=== PATIENT | male | born 1945 | race Caucasian/White ===

== ENCOUNTER 2017-10-13 08:18 | Outpatient (RCR) | payer MEDICARE ==
[2014-02-21 14:58] VITALS: Wt 96.1 kg
[2017-10-06 08:03] VITALS: BP 148/73
[2017-10-06 08:20] LABS: PLATELET COUNT, AUTOMATED 262 K/uL (150-450)
[~2017-10-13 08:18] MED LIST: ACE3 PO; ACLI400A2 IH; ADV100/50 INH; ADV250/50 INH; ALB0.5 INH; ALBU8.5H IH; AML5 PO; AMLO-96 PO; ASPI-1471 PO; ASPI-715 PO; AZIT-101 PO; BP MED; COM14R IH; DOCU50CA PO; FERR325T24 PO; FISH OIL1 CAP PO; FLUT1DIS28 IH; GUAI600T57 PO; GUALA600 PO; LISI-368 PO; LOSA-54 PO; LOSA100T62 PO; MULT-772 PO; OMEG300C PO; OMEG500C7 PO; OMEP-218 PO; PAN40 PO; PANT40TA65 PO; PRED-314 PO; PROAIRPT IH; SUCR1ORA17 PO; TIO18R IH; VITA150T2 PO
[2017-10-13 08:28] VITALS: BP 133/61
--- NOTE | 2017-10-14 16:41 | ONCOLOGY FOLLOW UP NOTE ---
EVENT DATE: October 13, 2017 CHIEF COMPLAINT/REASON FOR VISIT Mr. 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 HISTORY OF PRESENT ILLNESS Mr. Light returns. 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 He requires O2 chronically at altitude, but is able to remove it at lower altitudes such as [place]. He wears it at night and frequently during the day. Last April he complained of some black mucus which he was concerned to be blood. He has had an EGD with Dr. Love in the past and I recommended that he follow up with him at that time as well as consideration of esophageal dilatation. He did not keep that followup, and I would like him to follow up with Dr. Love soon as I am concerned he has an ulcer or other lesion causing the iron deficiency. This is regulating his secondary erythrocytosis. His labs are ideal, but I am concerned we are missing something. This may simply be hiatal hernia with some oozing in the stomach, but I would like to rule out a more serious diagnosis. Otherwise he is doing quite well. PAST MEDICAL HISTORY 1. Secondary erythrocytosis. 2. Erosive esophagitis. 3. COPD. 4. History of smoking. 5. History of colectomy. 6. Iron deficiency anemia due to bleeding, resolved. SOCIAL HISTORY The patient is and has presented with his . Former smoker, quit twenty-five years ago, but heavy pack year history. REVIEW OF SYSTEMS CONSTITUTIONAL: No fevers, chills or weight change. HEENT: No headache or vision changes. CARDIOVASCULAR: No chest pain, dyspnea on exertion or edema. RESPIRATORY: No shortness of breath, wheeze or cough. Chronic O2 use. GASTROINTESTINAL: Positive mucus that appears black at times, approximately every two months. May be some dried blood, small amount. GENITOURINARY: No dysuria or hematuria. MUSCULOSKELETAL: No weakness or joint pain. PSYCHIATRIC: No anxiety or depression. ENDOCRINE: No heat or cold intolerance. SKIN: No concerning rash or lesions. The remainder of the 14-point review of systems otherwise negative. PHYSICAL EXAMINATION VITAL SIGNS: Blood pressure 133/61, pulse 80, respiratory rate 16, temperature 97 Fahrenheit, oxygen saturation 92% on room air. Weight 96.1 kg. Pain 0/10, fatigue 0/10. GENERAL: In stable condition, resting comfortably in the chair. HEENT: Normocephalic, atraumatic. LYMPHATIC: No appreciable cervical, supraclavicular or axillary adenopathy. ABDOMEN: Soft, nontender. SKIN: No significant facial plethora today. The remainder of the physical exam is otherwise unremarkable. IMPRESSION AND PLAN Mr. Light is a pleasant 71-year-old gentleman with the followin. Iron deficiency with a history of bleeding polyps. 2. 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 His labs are ideal right now and balanced. 3. History of colon polyps as well as currently some scant hemoptysis. At this point, as it is continuing, he must follow up with Dr. Love and get an EGD as well as consideration of colonoscopy if it is due. He also thinks he may need an esophageal dilatation, and I defer to Dr. Love. I will continue to see him every six months. I answered all of his questions today. Billing: Return visit level 3. Total time 20 minutes, counseling time 15. MTDD
[2017-10-23] MEDS ORDERED: UMEC62.5 INH (08:44)
[2017-10-23] MEDS ORDERED: ADV230RPT INH (08:44)
[2017-10-23] MEDS ORDERED: GUAI1200 PO (08:44)
== END 2017-10-31 16:12 | disposition home or self-care (01) ==
LOC: ONC 08:18
PROVIDERS: ATTEND Internal Medicine
DX: D50.9 Iron deficiency anemia, unspecified (principal)
CPT/HCPCS: 36415; 82728; 83540; 83550; 85025; G0463; 82040; 82247; 82310; 82374; 82435; 82565; 82947; 84075; 84132; 84155; 84295; 84450; 84460; 84520; 99212

== ENCOUNTER → 2017-11-10 | Outpatient (CLI) | payer MEDICARE ==
[2014-02-21 14:58] VITALS: BMI 28.6
[~2017-11-10] MED LIST changes: +ADV230RPT INH; +GOLYTE PO; +GUAI1200 PO; +UMEC62.5 INH
[2017-11-10 10:31] LABS: PLATELET COUNT, AUTOMATED 284 K/uL (150-450)
--- NOTE | 2017-11-10 10:57 | EKG ---
[place] [facility] [place] JET FREEMAN : [id number] MR: [id number] V: [id number] EXAM DATE: ORDERING PHYSICIAN: JALEN VELÁSQUEZ TECHNOLOGIST: LYNN Test Reason : PRE OP CLEARANCE Blood Pressure : / mmHG Vent. Rate : 072 BPM Atrial Rate : 072 BPM P-R Int : 162 ms QRS Dur : 094 ms QT Int : 402 ms P-R-T Axes : 075 059 045 degrees QTc Int : 440 ms Sinus rhythm No acute appearing findings No previous ECGs available Confirmed by KEEGAN TSANG ([id number]) on 11/10/2017 12:50:39 PM Referred By: DIDIER Confirmed By:KEEGAN TSANG
--- NOTE | 2017-11-10 11:37 | RADIOLOGY IMAGING REPORT ---
FACILITY: [facility] PATIENT NAME: Garo Light : 1945 MR: [id number] V: [id number] EXAM DATE: ORDERING PHYSICIAN: JALEN VELÁSQUEZ TECHNOLOGIST: Location: [facility] Patient: Garo Light : 1945 Visit/Account:[id number] Date of Sevice: 11/10/2017 Exam type: CHEST PA AND LAT History: COPD, hemoptysis, preop clearance Comparison: November 15, 2011. Findings: There is increasing linear stranding in the mid to lower lung walter bilaterally which may represent progressive scarring and or atelectasis. There is hyperinflation lung walter. No evidence of pleura l effusions. The cardiac silhouette is normal in size. IMPRESSION: 1. Increasing linear stranding in the mid to lower lung walter bilaterally which may represent progr essive scarring and/or atelectasis Hyperinflation lung walter consistent with COPD Report Dictated By: Claribel Rodriguez MD at 11/10/2017 11:17 AM Report E-Signed By: Claribel Rodriguez MD at 11/10/2017 11:34 AM WSN:[email or web address]
== END ==
LOC: LAB 09:58
PROVIDERS: ATTEND Surgery
DX: Z01.818 Encounter for other preprocedural examination (principal); R91.8 Other nonspecific abnormal finding of lung field; R04.2 Hemoptysis
CPT/HCPCS: 36415; 71046; 82565; 85025

== ENCOUNTER 2017-11-20 03:31 | Day surgery (SDC) | payer MEDICARE ==
[2014-02-21 14:58] VITALS: Ht 180.3 cm; Wt 89.4 kg
[~2017-11-20] VITALS: Ht 180.3 cm; Wt 89.4 kg
[2017-11-20 13:08] VITALS: BP 129/60
[2017-11-20] MEDS ORDERED: LIDOCAINE/SOD BICARB 8.4% SYR ID ONE (13:30)
[2017-11-20] MEDS ORDERED: NORMOSOL R SOLN(*) 1000 ML BAG 1,000 ML IV PRN (13:30)
[2017-11-20] MEDS ORDERED: MIDAZOLAM 2 MG/2 ML VIAL IVP PRN (13:30)
[2017-11-20] MEDS ORDERED: ONDANSETRON 4 MG/2 ML VIAL ONE (14:51)
[2017-11-20] MEDS ORDERED: DEXAMETHASONE SOD 4 MG/ML VIAL ONE (14:51)
[2017-11-20] MEDS ORDERED: LIDOCAINE MPF 1% 5 ML VIAL ONE ×2 (14:51→15:43)
[2017-11-20] MEDS ORDERED: PROPOFOL EMUL(*) 10MG/ML 20 ML 20 ML ONE (14:51)
[2017-11-20] MEDS ORDERED: ROCURONIUM BROM 10 MG/ML 10 ML ONE (14:51)
[2017-11-20] MEDS ORDERED: fentaNYL CITR 250 MCG/5 ML AMP ONE (14:51)
[2017-11-20] MEDS ORDERED: KETAMINE HCL 200 MG/20 ML MDV ONE (14:55)
[2017-11-20] MEDS ORDERED: PROPOFOL EMUL(*) 10MG/ML 20 ML 40 ML ONE (15:43)
[2017-11-20] MEDS ORDERED: MINERAL OIL LIGHT 10 ML VIAL ONE (15:46)
[2017-11-20] MEDS ORDERED: PROPOFOL EMUL(*) 10MG/ML 20 ML 60 ML ONE (16:04)
[2017-11-20] MEDS ORDERED: SUGAMMADEX SOD 500 MG/5 ML SDV ONE (16:05)
[2017-11-20] MEDS ORDERED: RANI-320 PO (17:10)
--- NOTE | 2017-11-20 17:14 | Short(Outpt) Discharge Summary ---
Discharge Summary Reason for Hosp/Final Diag: (1) Iron deficiency anemia Status: Acute Hospital Course & Plan: Bronchoscopy with BAL, EGD with biopsies, and colonoscopy with polypectomy x6 completed without problems. (2) Hemoptysis Status: Chronic (3) History of colon polyps Status: Chronic (4) Dysphagia Status: Chronic (5) Esophagitis, erosive Status: Acute (6) History of smoking Status: Chronic (7) History of colectomy Onset Date: ~ 2007 Status: Acute Departure Discharge to: Home, Self Care Discharge Instructions Home Meds Active Scripts Ranitidine Hcl (RANITIDINE HCL) 300 Mg Tablet, 1 TAB PO QHS, #60 TAB 6 Refills Prov:JALEN VELÁSQUEZ MD 11/20/17 Peg/Electrolytes (GOLYTELY SOLUTION) 4,000 Ml Soln, 1 GAL PO ONCE, #1 GAL 0 Refills Prov:JALEN VELÁSQUEZ MD 11/10/17 Reported Medications Umeclidinium [place] (Incruse Ellipta) 62.5 Mcg Blst.w.dev, 1 BLIST PACK INH QDAY 10/23/17 Guaifenesin (MUCINEX) 1,200 Mg Tbmp.12hr, 1 TAB PO BID 10/23/17 Fluticasone/Salmeterol (ADVAIR HFA 230-21 MCG INHALER) 1 Inh Inh, 1 PUFF INH BID , INH 10/23/17 Pantoprazole Sodium (PANTOPRAZOLE SODIUM) 40 Mg Tablet.dr, 1 TAB PO QDAY, TAB.SR 05/11/15 Vitamin B Complex & Vit C No.4 (SUPER B COMPLEX) 150 Mg Tablet, 1 TAB PO DAILY 03/18/14 Multivitamin W-Minerals/Lutein (CENTRUM SILVER ULTRA MEN'S TAB) 1 Each Tablet, 1 TAB PO DAILY 03/18/14 [place]-3 Fatty Acids (FISH OIL) 300 Mg Capsule, 1 CAP PO DAILY, CAPSULE 03/18/14 Aspirin (ASPIR 81) 81 Mg Tablet., 1 TAB PO QDAY, TAB 03/08/14 Albuterol Sulfate 90 Mcg/Act (PROAIR HFA 90 MCG/ACT) 8.5 Gm Hfa.aer.ad, 1-2 PUFF IH BID 03/08/14 Amlodipine Besylate (AMLODIPINE BESYLATE) 5 Mg Tablet, 1 TAB PO BIDR, TAB TAKE ONE TABLET BY MOUTH EVERY DAY 03/08/14 Losartan/Hydrochlorothiazide (LOSARTAN-HCTZ 100-25 MG TAB) 1 Each Tablet, 1 TAB PO QDAY 03/08/14 Follow up Referrals: General Surgery - 12/01/17 @ Surgery, General with Jalen Velásquez Md You have a follow up appointment scheduled with Dr. Velásquez on 12/01/17, at 4:30pm. Diet: Regular Activity: As Tolerated Special Instructions: I didn't find anything abnormal in your airways. You have inflammed and eroded esophagus just above your stomach. I am going to add ranitidine to your anti stomach acid regimen and you should take one pill of ranitidine about 1 hour before going to bed every night. Avoid eating or drinking within 3 hours of laying down to go to bed. I removed 6 polyps from your colon and they were sent to pathology. I will discuss all of these results when I see you back in my office on 12/01/17, at 4:30pm. Problem Qualifiers (1) Iron deficiency anemia: Iron deficiency anemia type: unspecified iron deficiency Qualified Codes: D50.9 - Iron deficiency anemia, unspecified JALEN VELÁSQUEZ MD November 20, 2017 17:14
--- NOTE | 2017-11-20 17:26 | Post Operative Progress Note ---
Post Operative Progress Note Date: November 20, 2017 Time: 17:15 Surgeon: Ivan Dictation number: [id number] Anesthesia: GETA by Dr. Latham Pre-Op Diagnosis: Hemoptysis GERD Dysphagia H/O colon polyps Post-Op Diagnosis: WOO Erosive esophagitis Findings: Erosive esophagitis 6 colon polyps Procedure(s): Bronchoscopy with BAL EGD with biopsies Colonoscopy with snare polypectomy x6 Specimen Removed:(May be N/A): 1) Bronchoalveolar lavage sent for cytology 2) GE junction 3) Ascending colon polyp #1 4) Ascending colon polyp #2 5) Ascending colon polyp #3 6) Descending colon polyp 7) Rectal polyp #1 8) Rectal polyp #2 Complications: None Fluids: See anesthesia record Estimated Blood Loss: Minimal Date OP Note Dictated: November 20, 2017 Time OP Note Dictated: 17:18 JALEN VELÁSQUEZ MD November 20, 2017 17:25
[2017-11-20 17:45] VITALS: BP 112/57
[2017-11-20 17:52] VITALS: BP 111/57
--- NOTE | 2017-11-20 20:28 | OPERATIVE REPORT 1 ---
EVENT DATE: November 20, 2017 ENDOSCOPIST: Isaac Love MD ANESTHESIOLOGIST: Josh Subramanian MD ANESTHESIA: General endotracheal anesthesia. PREOPERATIVE DIAGNOSES 1. Hemoptysis. 2. Gastroesophageal reflux disease. 3. Dysphagia. 4. History of colon polyps. POSTOPERATIVE DIAGNOSES 1. Hemoptysis. 2. Gastroesophageal reflux disease. 3. Dysphagia. 4. History of colon polyps. 5. Erosive esophagitis. PROCEDURES PERFORMED 1. Bronchoscopy with bronchoalveolar lavage. 2. Esophagogastroduodenoscopy with biopsies. 3. Colonoscopy with snare polypectomy times six. COMPLICATIONS None. CONDITION Stable. BLOOD LOSS Minimal. SPECIMENS 1. Bronchoalveolar lavage sent for cytology. 2. GE junction. 3. Ascending colon polyp #1. 4. Ascending colon polyp #2. 5. Ascending colon polyp #3. 6. Descending colon polyp. 7. Rectal polyp #1. 8. Rectal polyp #2. INDICATIONS This is a 71-year-old gentleman who presented to my office complaining of chronic reflux and even regurgitation when he lays down at night. He reported having produced black mucus, which he is convinced is coming from his airways. He is a previous long-term smoker, but has not smoked for quite a few years. He also has a history of advanced colon polyps and even had a partial colectomy for an advanced polyp that could not removed endoscopically. He was requesting to have a bronchoscopy, EGD, and colonoscopy. He did have a chest CT that I ordered which did not show any findings suspicious for malignancy. DESCRIPTION OF PROCEDURE The patient was brought to the operating room and placed supine on the operating table. General endotracheal anesthesia was administered, and we were set up for bronchoscopy. I advanced the bronchoscope through the endotracheal tube and into the trachea and then started into the right mainstem bronchus. I looked at the upper lobe bronchus and then the bronchus intermedius and down into the lower and middle lobe bronchi. He initially had quite a bit of mucus throughout his airways, and I was able to easily suction this out. Then, after inspecting the bronchi to the upper, middle, and lower lobes on the right, I went into the left mainstem bronchus and then into the upper and lower branches on the left side. I did not find any endobronchial lesions throughout his bronchial tree that I was able to look at. I then squirted in normal saline into the right bronchial tree and then suctioned it out into a suction cup, which was placed into [facility] preservative and sent to Pathology. I did the same thing on the left side and suctioned out the saline, and it was sent for cytology. I then withdrew the bronchoscope, and then we set up for EGD. I obtained an endoscope, lubricated it, then tested it to ensure it was completely functional, and inserted into his mouth. I was able to advance it into his esophagus without any problems and advanced it all the way to the third portion of the duodenum. I withdrew the scope and looked at all mucosal surfaces for any abnormalities. He did have some duodenitis, but there was no peptic ulcer disease or gastritis. His stomach looked unremarkable. He did have evidence of benign-appearing fundic gland polyps in his stomach. I then withdrew the scope into his esophagus and identified esophagitis along the distal 3 cm of his esophagus with some streaks of erosions. I took multiple biopsies of this entire area to rule out [place] esophagus. I then withdrew the scope through the rest of his esophagus, which was unremarkable, and then withdrew the scope from his mouth. He was placed in the left lateral decubitus position, and the colonoscope was set up and tested to ensure it was completely functional, then lubricated and inserted into his rectum through his anus. I advanced the scope all the way through to his cecum without any problems. I slowly withdrew the scope as I looked at all mucosal surfaces for any abnormalities. I found three polyps in the ascending colon, one in his descending colon, and two in his rectum, and all of them were removed with snares in their entirety. I placed endoclips on two of the ascending colon polyp removal sites and the descending colon polyp removal site just to reapproximate the mucosal edges. I then retroflexed the scope in his rectum, and there were no abnormalities in the distal rectum or upper anus. I then desufflated his colon and removed the scope. The prep was excellent, and withdrawal time was around 20 minutes. The patient was then awakened and extubated in the operating room and transported to the recovery room in stable condition having tolerated all three of these procedures without any apparent problems. [facility]IAL HOSPITALBrianna
== END 2017-11-20 17:45 | disposition home or self-care (01) ==
LOC: OR 03:31
PROVIDERS: ATTEND Surgery
DX: R04.2 Hemoptysis (principal); K21.9 Gastro-esophageal reflux disease without esophagitis; R13.10 Dysphagia, unspecified; Z86.010 Personal history of colon polyps; K22.10 Ulcer of esophagus without bleeding; K63.5 Polyp of colon
CPT/HCPCS: 00811; 31624; 43239; 45385; 88104; 88305; 88313; J2001; J2704; J3490; J1100; J2405; J3010

== ENCOUNTER → 2017-12-10 | Outpatient (CLI) | payer MEDICARE ==
[2014-02-21 14:58] VITALS: BMI 28.6
[~2017-12-10] MED LIST changes: +IOPAMIDOL 76% 75 ML INFUS BTL 75 ML ONE; +RANI-320 PO
--- NOTE | 2017-12-10 16:39 | RADIOLOGY IMAGING REPORT ---
FACILITY: [facility] PATIENT NAME: Garo Light : 1945 MR: [id number] V: [id number] EXAM DATE: ORDERING PHYSICIAN: JALEN VELÁSQUEZ TECHNOLOGIST: Location: [facility] Patient: Garo Light : 1945 Visit/Account:[id number] Date of Sevice: 12/10/2017 CHEST W CONTRAST History: Smoking history TECHNIQUE: Contiguous axial images were performed through the chest to the level of the adrenal gla nds following the administration of IV contrast. Coronal and sagittal reformatting was also perform ed. Dose Lowering Technique One of the following dose optimization techniques was utilized in the performance of this exam: Autom ated exposure control; adjustment of the mA and/or kV according to the patient's size; or use of an i terative reconstruction technique. Specific details can be referenced in the facility's radiology C T exam operational policy. Contrast: 75 mL Isovue-[id number] COMPARISON STUDIES: January 01, 2011. Lungs / Pleura: Mild centrilobular emphysema again seen throughout the lungs. The two noncalcified pulmonary nodules in the right middle lobe have remained stable of the largest m easuring on average 5 mm. There is increasing a coarse linear stranding in the inferior right middle lobe and posterior lower lobes which may represent scarring versus atelectasis. Peribronchial thick ening most prominent lower lobes slightly advanced when compared to the prior study.. No evidence of pleural effusions. Mediastinum/nodes: There is a 1.4 x 1.2 x 1.7 cm pretracheal lymph node appears relatively unchanged . There is a 2 x 1.1 x 1.5 cm right hilar lymph node also relatively unchanged there are small AP wi ndow lymph nodes also unchanged Heart and vessels: At least moderate coronary artery calcifications are present Musculoskeletal / Body wall: No aggressive appearing bone lesions are seen Upper abdomen: Small hiatal hernia IMPRESSION: The two noncalcified pulmonary nodules the right middle lobe measuring up to 5 mm on average have rem ained stable Mild centrilobular emphysema throughout the lungs Increasing coarse linear stranding in the inferior right middle lobe and both lower lobes which may r epresent scarring versus atelectasis Peribronchial thickening, most prominent in the lower lobes slightly more advanced when compared to t he prior study Mild mediastinal adenopathy is unchanged At least moderate coronary artery calcifications Small hiatal hernia Report Dictated By: Claribel Rodriguez MD at 12/10/2017 4:19 PM Report E-Signed By: Claribel Rodriguez MD at 12/10/2017 4:35 PM WSN:[email or web address]
== END ==
LOC: CT 00:59
PROVIDERS: ATTEND Surgery
DX: J43.9 Emphysema, unspecified (principal); R91.8 Other nonspecific abnormal finding of lung field; Z72.0 Tobacco use; I25.10 Atherosclerotic heart disease of native coronary artery without angina pectoris; K44.9 Diaphragmatic hernia without obstruction or gangrene
CPT/HCPCS: 71260; Q9967

== ENCOUNTER 2018-04-15 06:52 | Outpatient (RCR) | payer MEDICARE ==
[2014-02-21 14:58] VITALS: BMI 28.6
[~2018-04-15 06:52] MED LIST changes: +AMLO-111 PO; -AMLO-96 PO; -IOPAMIDOL 76% 75 ML INFUS BTL 75 ML ONE
== END 2018-05-13 08:22 | disposition home or self-care (01) ==
LOC: ONC 06:52
PROVIDERS: ATTEND Internal Medicine
DX: D50.9 Iron deficiency anemia, unspecified (principal)